=== PATIENT | male | born 2000 | race Caucasian/White ===

== ENCOUNTER 2020-05-01 20:03 | Emergency (ER) | payer BC ==
[~2020-05-01] VITALS: Ht 180.3 cm; Wt 65.9 kg
[2020-05-01 20:11] VITALS: BP 126/78
[2020-05-01] MEDS ORDERED: ondansetron 4mg rapidly disintigrating tab PO ONE (22:45)
[2020-05-01] MEDS ORDERED: HYDROcodone/acetaminophen 5mg/325mg tablet PO ONE (22:45)
[2020-05-01] MEDS ORDERED: HYDR-4383 PO (22:48)
[2020-05-01] MEDS ORDERED: ONDA4TAB6 PO (22:48)
[2020-05-01] MEDS ORDERED: ibuprofen tablet 400 MG TABLET PO ONE (22:55)
== END 2020-05-01 23:27 | disposition home or self-care (01) ==
LOC: ER 20:04
DX: S62.306A Unspecified fracture of fifth metacarpal bone, right hand, initial encounter for closed fracture (principal); M79.641 Pain in right hand; Z98.890 Other specified postprocedural states; Z79.899 Other long term (current) drug therapy; X58.XXXA Exposure to other specified factors, initial encounter; Y93.89 Activity, other specified; Y92.89 Other specified places as the place of occurrence of the external cause; Y99.8 Other external cause status
CPT/HCPCS: 29125; 73130; 99283